=== PATIENT | male | born 1945 | race Caucasian/White ===

== ENCOUNTER → 2016-08-26 | Outpatient (CLI) | payer MEDICARE, BC ==
[~2016-08-26] MED LIST: ALFALFA650 MG PO; ASPIR 8181 M1 PO; AUGMENTIN875 MG PO; CADUET PO; CELEXA40 MG PO; DILAUDID2 MG PO; HYZAAR 100-11 TABLET PO; PROMETHAZINE HC25 M1 PO; SUPER B-50 COM1 EACH PO
== END | disposition home or self-care (01) ==
LOC: CDC 14:46
DX: R94.31 Abnormal electrocardiogram [ECG] [EKG] (principal); H25.11 Age-related nuclear cataract, right eye
CPT/HCPCS: 93000

== ENCOUNTER 2017-09-18 07:45 | Day surgery (SDC) | payer OTHER ==
[~2017-09-18] VITALS: Ht 180.3 cm; Wt 90.7 kg
[2017-09-18 09:09] VITALS: BP 141/86
[2017-09-18 12:28] VITALS: BP 145/83
[2017-09-18 12:55] VITALS: BP 155/89
== END 2017-09-18 13:10 | disposition home or self-care (01) ==
LOC: SDC 07:45
DX: H35.81 Retinal edema (principal); H35.371 Puckering of macula, right eye; I10 Essential (primary) hypertension; R73.03 Prediabetes; B19.20 Unspecified viral hepatitis C without hepatic coma; E78.5 Hyperlipidemia, unspecified; Z79.82 Long term (current) use of aspirin
CPT/HCPCS: J0690; J0713; J2405; J3300; J7643